=== PATIENT | female | born 1960 | race Caucasian/White ===

== ENCOUNTER 2023-10-29 15:50 | Emergency (ER) | payer BC, SELFPAY ==
[2023-10-29 15:57] VITALS: BP 184/97
[2023-10-29 16:25] LABS: % Basophils 0.4 % (0-2); % Eosinophils 1.4 % (0-6); % Immature Granulocytes 0.4 % (0-0.5); % Lymphocytes 23.8 % (20.5-51.1); % Monocytes 5.9 % (1.7-9.3); % Neutrophils 68.1 % (42.2-75.2); Absolute Eosinophils 0.2 10^3/uL (0-0.7); Absolute Lymphocytes 2.6 10^3/uL (1.2-3.4); Absolute Monocytes 0.7 10^3/uL (0.1-0.6); Absolute Neutrophils 7.5 10^3/uL (1.4-6.5); Hematocrit 38.1 % (37.0-47.0); Hemoglobin 12.7 g/dL (12.0-16.0); Mean Corp Hgb Conc. 33.3 g/dL (33.0-37.0); Mean Corpuscular Hgb 29.4 pg (27.0-31.0); Mean Corpuscular Volume 88.2 fL (81.0-99.0); Mean Platelet Volume 9.1 fL (7.4-10.4); Nucleated Red Blood Cells % 0 %; Platelet Count 317 10^3/uL (130-400); Red Blood Cell Count 4.32 10^6/uL (4.20-5.40); Red Cell Dist. Width 12.7 % (11.5-14.5)
[2023-10-29 16:45] LABS: ALT (SGPT) 15 U/L (0-35); AST (SGOT) 22 U/L (14-36); Albumin 4.3 g/dl (3.5-5.0); Alkaline Phosphatase 91 U/L (38-126); Blood Urea Nitrogen 12 mg/dl (7-17); Calcium 9.6 mg/dl (8.4-10.2); Carbon Dioxide 28 mmol/L (22-30); Chloride 101 mmol/L (98-107); Glucose 122 mg/dl (70-99); Potassium 4.2 mmol/L (3.5-5.1); Sodium 139 mmol/L (135-145); Total Bilirubin 0.5 mg/dl (0.2-1.3); Total Protein 7.7 g/dl (6.3-8.2); eGFR > 60.00
[2023-10-29 16:52] LABS: Troponin I < 0.012 ng/ml
--- NOTE | 2023-10-29 18:19 | ED.GENMED ---
History of Present Illness
General
Chief Complaint: Dizziness
Source: patient
Exam Limitations: none
Time Seen by Provider: 10/29/23 18:03
Travel History
Have you had any contact with someone who has COVID-19?: No
Do you have any symptoms of coronavirus? Fever > 100 degrees, chills, cough, shortness of breath, sore throat, loss of taste or smell, muscle aches, or headache?: No
History of Present Illness
History of Present Illness:
63-year-old female presents with elevated blood pressure readings at home. No prior history of hypertension. She felt something was off when she felt dizzy while at work. She describes a spinning slightly sensation and a lightheaded sensation.
This does seem to get better still. It does happen while she is sitting. No vision change. No neck pain chest pain or shortness of breath. No fevers unilateral numbness or tingling. No other complaints at this time
Phy Exam
Physical Exam
Physical Exam:
General: Well-appearing female no acute respiratory distress
HEENT: Normocephalic atraumatic pupils equal round reactive to light extract motion intact no nystagmus
Heart: Regular rate and rhythm no murmurs
Lungs: Clear to auscultation bilaterally no wheezing
Neurologic: Alert and oriented no facial asymmetry normal gait negative [place]
Extremities: No cyanosis
Course
Orders/Labs/Results
Orders:
Orders
10/29/23 16:00
ECG [Electrocardiogram (*1)] Urgent
Reason for Study: Vertigo / Dizzy
CT Head W/o Iv Contrast Urgent
Comment:
Reason For Exam: dizziness
10/29/23 16:01
EKG- Treatment ONCE
10/29/23 16:14
Complete Blood Count/With Diff Urgent
Comprehensive Metabolic Panel Urgent
TSH Reflex To Free T4 Urgent
Comment: ADD ON
Troponin I Urgent
10/29/23 18:18
Orthostatic VS- Treatment ONCE
10/29/23 18:19
Add On- LAB Urgent
Tests Added?: tsh reflex to t4
Abnormal Lab Results
10/29/23
16:14
WBC 11.0 H 10^3/uL
(4.8-10.8)
Absolute Neuts (auto) 7.5 H 10^3/uL
(1.4-6.5)
Absolute Monos (auto) 0.7 H 10^3/uL
(0.1-0.6)
Glucose 122 H mg/dl
(70-99)
10/29/23 16:14
10/29/23 16:14
Vital Signs
Initial and Last Documented VS:
Initial Vital Signs
Temp Pulse Resp BP Pulse Ox
98.2 F 83 18 184/97 99
10/29/23 15:57 10/29/23 15:57 10/29/23 15:57 10/29/23 15:57 10/29/23 15:57
Last Documented Vital Signs
Temp Pulse Resp BP Pulse Ox
98.2 F 89 16 146/87 97
10/29/23 15:57 10/29/23 19:09 10/29/23 19:09 10/29/23 19:09 10/29/23 19:09
MDM/Problems Addressed
Differential Diagnosis Includes:
Elevated blood pressure readings and dizziness. No exam findings consistent with stroke. Will check orthostatic vital signs. Check labs including troponin. EKG through triage shows sinus rhythm without ischemic changes.
*Critical Care Note
Total Time (30-74mins, 75-104mins- exclusive of procedures): Not Applicable
Update Note
Update Note:
CT was negative. Labs reviewed without significant finding. Patient blood pressure did lower on its own. Orthostatic vital signs did show a drop in blood pressure increased heart rate. Recommended increased hydration at home. This morning prior
to going to work patient's blood pressure was normal. 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 Blood pressure elevation may be transient and situational related to stress at work. Did prescribe low-dose lisinopril and
have her follow-up with her family doctor. Return precuations were given.
ED Attending Note
-
Portions of this chart may have been created with voice recognition software.� Occasional wrong word or��sound alike� substitutions may have occurred due to the inherent limitations of voice recognition software.
Discharge Plan
Departure
Patient Disposition: Home (Routine Discharge)
Date of Disposition: 10/29/23
Time of Disposition: 19:42
Patient with high blood pressure during this ER visit?: No
Discharge Problem:
Elevated blood pressure reading
Instructions: BLOOD PRESSURE
Prescriptions:
New
lisinopril 5 mg tablet
5 mg PO DAILY Qty: 30 0RF
Referrals:
Jane Coy MD [Family Provider] -
Activity Restrictions/Additional Instructions:
Stay hydrated. Please plan on following up with your family doctor. Lisinopril was sent to your pharmacy. Return for worsening symptoms otherwise
Interventions
Interventions:
*Risk Screen - Suicide Last Done: 10/29/23 15:57
*General Assessment Last Done: 10/29/23 15:57
*Neglect/Abuse Screening Last Done: 10/29/23 15:57
ED- Neurological Assessment Last Done: 10/29/23 19:09
[2023-10-29 19:09] VITALS: BP 146/87; BP 155/83; BP 160/86; PULSE 72; PULSE 75; PULSE 89
== END 2023-10-29 20:03 | disposition home or self-care (01) ==
LOC: EMR 15:50
PROVIDERS: Emergency Medicine; EMERGENCY PHYSICIAN Emergency Medicine; FAMILY PHYSICIAN Family Medicine
DX: R42 Dizziness and giddiness (principal); R03.0 Elevated blood-pressure reading, without diagnosis of hypertension
CPT/HCPCS: 99285; 70450; 80053; 84443; 84484; 85025; 93005

== ENCOUNTER → 2025-02-07 08:07 | Outpatient (REF) | payer BC, SELFPAY | LOC: HWRAD 08:07 | PROVIDERS: ATTENDING PHYSICIAN Obstetrics & Gynecology; FAMILY PHYSICIAN Family Medicine | DX: Z78.0 Asymptomatic menopausal state (principal) | CPT/HCPCS: 77080 ==